=== PATIENT | male | born 1940 | race Caucasian/White ===

== ENCOUNTER 2016-10-13 05:58 | Emergency (ER) | payer MEDICARE, BC ==
--- NOTE | 2016-10-13 06:49 | ED.PDOC ---
History of Present Illness - General Chief Complaint: Respiratory Problem Stated Complaint: sore throat, diff swallowing Time Seen by Provider: 10/13/16 06:46 Source: patient, family Exam Limitations: no limitations Additional Information: SORE THROAT, STARTED 3 D AGO. FOR PAST 2 D, HAVING COUGH WITH CLEAR SPUTUM. WAS DRY COUGH AT FIRST; NOW PRODUCTIVE. DENIES FEVER. DENIES SOB. NO EAR PAIN. NO SINUS/FACIAL PAIN. STATES HAD FLU AND PNE VACCINES. IS A RETIRED LOCAL PHYSICIAN. ALLG: TO SULFA, CIPRO, CEFIXIME. - History of Present Illness Cough Quality/Degree: productive cough Improving Factors: nothing Worsening Factors: other - SWALLOWING Associated Symptoms: cough, sore throat Allergies/Adverse Reactions: Allergies Cefixime [From Suprax] Allergy (Verified 07/08/15 13:30) Ciprofloxacin [From Cipro] Allergy (Verified 03/06/15 14:31) Sodium Benzoate [From Suprax] Allergy (Verified 07/08/15 13:30) Sulfa Antibiotics Allergy (Verified 03/06/15 14:31) Anaphylaxis Home Medications: Ambulatory Orders Apixaban [Eliquis] 2.5 mg PO BID 07/08/15 LORazepam [Ativan] 2 mg PO PRN PRN 07/08/15 Lisinopril 40 mg PO DAILY 07/08/15 Propranolol HCl [Inderal LA] 120 mg PO DAILY 07/08/15 Sertraline HCl [Zoloft] 50 mg PO 10/13/16 Review of Systems - Review of Systems Constitutional: Denies: chills, diaphoresis, fever EENTM: States: throat pain. Denies: ear pain, nose congestion, throat swelling , mouth pain Respiratory: States: cough. Denies: short of breath, stridor, wheezing Cardiology: States: no symptoms reported. Denies: chest pain Genitourinary: States: no symptoms reported Musculoskeletal: States: no symptoms reported Skin: States: no symptoms reported Neurological: States: no symptoms reported Endocrine: States: no symptoms reported Hematologic/Lymphatic: States: no symptoms reported All other Systems: Reviewed and Negative Past Medical History (General) - Patient Medical History Hx Seizures: No Hx Stroke: Yes Hx Asthma: No Hx of COPD: No Hx Cardiac Disorders: Yes Hx Congestive Heart Failure: No Hx Pacemaker: No Hx Hypertension: Yes Hx Diabetes: No Hx MRSA: No Surgical History: tonsillectomy - Vaccination History Hx Tetanus, Diphtheria Vaccination: Yes Hx Influenza Vaccination: Yes Hx Pneumococcal Vaccination: Yes - Social History Hx Tobacco Use: No Hx Chewing Tobacco Use: No Hx Alcohol Use: No Hx Substance Use: No Hx Depression: Yes Hx Physical Abuse: No Hx Emotional Abuse: No - Female History Patient : No Family Medical History - Family History Father Family History: Unknown Living Status: Hx Family Asthma: No Hx Family Congestive Heart Failure: No Hx Family Hypertension: No Hx Family Stroke: No Hx Cardiac Disease: No Hx Family Diabetes: No Hx Family Cancer: Yes Mother Name: mother Living Status: Age at (years of age): 91 Cause of : sepsis Hx Family Asthma: No Hx Family Congestive Heart Failure: No Hx Family Hypertension: Yes Hx Family Stroke: No Hx Cardiac Disease: No Hx Family Diabetes: No Hx Family Cancer: No Physical Exam - Physical Exam General Appearance: Alert, Ill Appearing, Well Developed Eye Exam: bilateral normal ENT Exam: TMs normal, pharyngeal erythema, other - NO EXUDATES. Neck: non-tender, full range of motion, supple - NO LAD Respiratory: chest non-tender, no respiratory distress, no accessory muscle use - FAINT RONCHI R ANTERIOR CHEST. NO CRACKLES OR WHEEZES. 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 10/13/16 07:08 I DISCUSSED THE PATIENT'S CASE AND TRANSFERRED CARE TO DR. CROWELL, WHO IS TAKING OVER THE E.D. THIS MORNING AND WILL FORMULATE THE DIAGNOSIS AND TREATMENT PLAN. THANK YOU, DR. CROWELL. 10/13/16 07:10 10/13/16 07:11 Departure - Departure Disposition: Discharge to Home or Self Care Departure Forms: ED Discharge - Pt. Copy, Patient Portal Self Enrollment Home Medications: Ambulatory Orders Apixaban [Eliquis] 2.5 mg PO BID 07/08/15 LORazepam [Ativan] 2 mg PO PRN PRN 07/08/15 Lisinopril 40 mg PO DAILY 07/08/15 Propranolol HCl [Inderal LA] 120 mg PO DAILY 07/08/15 Sertraline HCl [Zoloft] 50 mg PO 10/13/16
[2016-10-13] MEDS ORDERED: IPRATROPIUM/ALBUTEROL 3 ML VIAL NEB ONE (07:45)
[2016-10-13 08:18] VITALS: BP 152/72; TEMP 100.4; O2SAT 92
[2016-10-13] MEDS: ACETAMINOPHEN 500 MG TAB PO ONE (08:34)
--- NOTE | 2016-10-16 14:09 | RAD ---
EXAM: Two view chest. INDICATION: Chest pain. COMPARISON: Chest x-ray: 03/06/2015. FINDINGS: Cardiac silhouette: Unremarkable. Nicole: Unremarkable. Lobar consolidation: None.Pleural effusion: None.Pneumothorax: None.Other: None. Bones: Unremarkable. Other: None. IMPRESSION: 1. No acute cardiopulmonary process. Electronically signed by: Rodney Mcfadden MD 10/13/2016 6:52 AM [employer]
--- NOTE | 2016-11-09 23:49 | RAD ---
EXAM: Two view chest. INDICATION: Chest pain. COMPARISON: Chest x-ray: 03/06/2015. FINDINGS: Cardiac silhouette: Unremarkable. Nicole: Unremarkable. Lobar consolidation: None.Pleural effusion: None.Pneumothorax: None.Other: None. Bones: Unremarkable. Other: None. IMPRESSION: 1. No acute cardiopulmonary process. Electronically signed by: Rodney Mcfadden MD 10/13/2016 6:52 AM MEDICAL SALES CONSULTANT
== END 2016-10-13 08:45 | disposition home or self-care (01) ==
LOC: ER 05:58
DX: J20.9 Acute bronchitis, unspecified (principal); I10 Essential (primary) hypertension; Z88.2 Allergy status to sulfonamides; Z88.3 Allergy status to other anti-infective agents; Z86.73 Personal history of transient ischemic attack (TIA), and cerebral infarction without residual deficits
CPT/HCPCS: 71020; 80053; 83605; 85025; 87070; 87502; 87651; J7620

== ENCOUNTER → 2017-01-09 | Outpatient (CLI) | payer MEDICARE, BC | END | disposition home or self-care (01) | LOC: GMAB 10:13 | PROVIDERS: ATTEND Family Medicine | DX: Z12.5 Encounter for screening for malignant neoplasm of prostate (principal); D51.9 Vitamin B12 deficiency anemia, unspecified; I10 Essential (primary) hypertension | CPT/HCPCS: 82607; 84443; G0103 ==

== ENCOUNTER → 2017-04-13 | Outpatient (CLI) | payer MEDICARE, BC | END | disposition home or self-care (01) | LOC: LAB 07:56 | PROVIDERS: ATTEND Internal Medicine Interventional Cardiology | DX: E78.5 Hyperlipidemia, unspecified (principal) ==

== ENCOUNTER → 2018-02-24 | Outpatient (CLI) | payer MEDICARE, BC | LOC: GMAB 11:03 | PROVIDERS: ATTEND Family Medicine | DX: E53.8 Deficiency of other specified B group vitamins (principal); I10 Essential (primary) hypertension; E55.9 Vitamin D deficiency, unspecified; Z12.5 Encounter for screening for malignant neoplasm of prostate | CPT/HCPCS: 82306; 82607; 84443; G0103 ==

== ENCOUNTER 2018-11-09 09:27 | Emergency (ER) | payer MEDICARE, BC ==
[2018-11-09 09:52] VITALS: TEMP 97.2
--- NOTE | 2018-11-09 10:05 | ED.PDOC ---
History of Present Illness - General Chief Complaint: Trauma Stated Complaint: s/p fall Time Seen by Provider: 11/09/18 09:46 Source: patient Exam Limitations: no limitations - History of Present Illness Initial Comments: Abbi Garcia 77 y/o male stated that he was in his barn 07 Nov 2018 feeding feral cats and as he was walking slipped and fell initially hit the metal door with his left shoulder and chest then landed on his left side on the concrete floor.Denies LOC.neck or abdominal pains but with non radiating dull pains on his left shoulder.chest wall and left hip on walking. Occurred: other - see hpi Severity: moderate Pain Location: chest, pelvis, upper extremity Method of Injury: fall Improving Factors: rest Worsening Factors: movement Loss of Consciousness: no loss of consciousness Associated Symptoms (Fall): other - pain Allergies/Adverse Reactions: Allergies Cefixime [From Suprax] Allergy (Verified 07/08/15 13:30) Ciprofloxacin [From Cipro] Allergy (Verified 03/06/15 14:31) Olmesartan [From Benicar] Allergy (Verified 11/09/18 09:53) Sodium Benzoate [From Suprax] Allergy (Verified 07/08/15 13:30) Sulfa Antibiotics Allergy (Verified 03/06/15 14:31) Anaphylaxis Home Medications: Ambulatory Orders Apixaban [Eliquis] 2.5 mg PO BID 07/08/15 LORazepam [Ativan] 1 mg PO Q8H 07/08/15 Propranolol HCl [Inderal LA] 120 mg PO DAILY 07/08/15 Amlodipine Besylate 5 mg PO DAILY 11/09/18 Finasteride [Proscar] 5 mg PO DAILY 11/09/18 Multiple Vitamin [Multivitamins] 1 cap PO DAILY 11/09/18 Oxcarbazepine [Trileptal] 150 mg PO BEDTIME 11/09/18 Zinc 400 mg PO DAILY 11/09/18 Review of Systems - Review of Systems Constitutional: States: no symptoms reported EENTM: States: no symptoms reported Respiratory: States: no symptoms reported Cardiology: States: no symptoms reported Musculoskeletal: States: see HPI Past Medical History (General) - Patient Medical History Hx Seizures: No Hx Stroke: Yes Hx Asthma: No Hx of COPD: No Hx Cardiac Disorders: Yes Hx Congestive Heart Failure: No Hx Pacemaker: No Hx Hypertension: Yes Hx Diabetes: No Hx MRSA: No Surgical History: tonsillectomy, other - femur right,cataract bilateral - Vaccination History Hx Tetanus, Diphtheria Vaccination: Yes Hx Influenza Vaccination: Yes Hx Pneumococcal Vaccination: Yes - Social History Hx Tobacco Use: No Hx Chewing Tobacco Use: No Hx Alcohol Use: No Hx Substance Use: No Hx Depression: Yes Hx Physical Abuse: No Hx Emotional Abuse: No - Activities of Daily Living Patient Lives Alone: No - Female History Patient : No Family Medical History - Family History Father Family History: Unknown Living Status: Hx Family Asthma: No Hx Family Congestive Heart Failure: No Hx Family Hypertension: No Hx Family Stroke: No Hx Cardiac Disease: No Hx Family Diabetes: No Hx Family Cancer: Yes Mother Name: mother Living Status: Age at (years of age): 91 Cause of : sepsis Hx Family Asthma: No Hx Family Congestive Heart Failure: No Hx Family Hypertension: Yes Hx Family Stroke: No Hx Cardiac Disease: No Hx Family Diabetes: No Hx Family Cancer: No Physical Exam - Physical Exam General Appearance: Alert, Comfortable, No apparent distress Head Injury: no evidence of injury Eye Exam: bilateral normal ENT Exam: hearing grossly normal, no evidence of ENT injury, no dental injury Neck Exam: non-tender, full range of motion, normal alignment, normal inspection Cardiovascular/Respiratory: regular rate, rhythm, no M/R/G, normal peripheral pulses, no JVD, normal breath sounds Gastrointestinal/Abdominal: non tender, soft Back Exam: no CVA tenderness, no vertebral tenderness Extremity Exam: no pedal edema, pelvis stable - but with ternderness left hip trochanter;int/ext rotation both hip non tender Neurologic: no motor/sensory deficits, alert, oriented x 3 - [place] Coma Score Best Eye Response (Farzana): (4) open spontaneously Best Verbal Response (Farzana): (5) oriented Best Motor Response (Farzana): (6) obeys commands Farzana Total: 15 Progress - Progress Progress: 11/09/18 11:56 Vital Signs - 8 hr 11/09/18 11/09/18 09:47 10:47 Temperature 97.2 F L Pulse Rate [ 73 95 H Right Brachial] Respiratory 16 20 Rate Blood Pressure 151/72 138/80 [Right Arm] O2 Sat by Pulse 95 95 Oximetry - EKG/XRAY/CT XRAY: hip - pelvis ,left shoulder,chest -no fractures Departure - Departure Clinical Impression: Hip pain, left, Rib pain on left side Fall Qualifiers: Encounter type: initial encounter Qualified Code(s): W19.XXXA - Unspecified fall, initial encounter Shoulder pain, left Qualifiers: Chronicity: unspecified Qualified Code(s): M25.512 - Pain in left shoulder Time of Disposition: 11:58 Disposition: Discharge to Home or Self Care Condition: Fair Departure Forms: ED Discharge - Pt. Copy, Patient Portal Self Enrollment Instructions: Bruised Rib (DC), Hip Pointer (DC), Contusion (DC) Referrals: Ray Marrero MD [Primary Care Provider] - 1-2 Weeks Home Medications: Ambulatory Orders Apixaban [Eliquis] 2.5 mg PO BID 07/08/15 LORazepam [Ativan] 1 mg PO Q8H 07/08/15 Propranolol HCl [Inderal LA] 120 mg PO DAILY 07/08/15 Amlodipine Besylate 5 mg PO DAILY 11/09/18 Finasteride [Proscar] 5 mg PO DAILY 11/09/18 Multiple Vitamin [Multivitamins] 1 cap PO DAILY 11/09/18 Oxcarbazepine [Trileptal] 150 mg PO BEDTIME 11/09/18 Zinc 400 mg PO DAILY 11/09/18 Additional Instructions: Continue with all home meds;Tylenol 500 mg every 6 hours for pain as neededReturn to ER if symptoms worsens
--- NOTE | 2018-11-09 10:48 | RAD ---
EXAM DESCRIPTION: Chest,1 View CLINICAL HISTORY: fall/pain COMPARISON: October 13, 2016 FINDINGS: The cardiomediastinal silhouette is unremarkable. There is no airspace consolidation or pleural effusion. The bronchovascular markings are within normal limits, and the lungs are not hyperinflated. There is no pneumothorax or acute fracture. IMPRESSION: Negative exam. Electronically signed by: Sandoval Asif MD 11/09/2018 10:44 AM [facility]
--- NOTE | 2018-11-09 11:40 | RAD ---
EXAM DESCRIPTION: Pelvis CLINICAL HISTORY: 77 years Male, fall/pain COMPARISON: None. FINDINGS: Single AP view of the pelvis shows no acute fracture or malalignment. Mild degenerative changes in both hips, portions of the left hip are excluded from this exam. Vascular calcifications are noted. There are degenerative changes in the lower lumbar spine. The sacroiliac joints and pubic symphysis are unremarkable. Soft tissue tissue calcifications are noted over the right flank region, doubtful clinical significance. IMPRESSION: Vascular calcifications and degenerative changes without acute pelvic abnormality, only slightly limited as detailed above. If clinical suspicion of pelvic injury persists, CT is recommended. Electronically signed by: Sandoval Asif MD 11/09/2018 11:37 AM [facility]
--- NOTE | 2018-11-09 11:42 | RAD ---
EXAM DESCRIPTION: Hip,Left 2 Views CLINICAL HISTORY: 77 years Male, fall/pain COMPARISON: None. FINDINGS: Two views of the left hip show no acute fracture or malalignment. Degenerative calcifications arise from the posterior aspect of the left acetabulum without significant left hip joint space narrowing. There are degenerative calcifications adjacent to the greater trochanter with additional soft tissue calcifications inferior to the left inferior pubic ramus. IMPRESSION: Degenerative changes without acute left hip abnormality. Electronically signed by: Sandoval Asif MD 11/09/2018 11:39 AM [facility]
--- NOTE | 2018-11-09 11:44 | RAD ---
EXAM DESCRIPTION: Ribs,Left 2 Views CLINICAL HISTORY: fall/pain COMPARISON: None available FINDINGS: Two views of the left sided ribs show no acute fracture or malalignment. No pneumothorax or left chest wall abnormality. IMPRESSION: Negative exam. Electronically signed by: Sandoval Asif MD 11/09/2018 11:41 AM [employer]
--- NOTE | 2018-11-09 11:45 | RAD ---
EXAM DESCRIPTION: Shoulder,Left 2 or More Views CLINICAL HISTORY: 77 years Male, fall/pain COMPARISON: None. FINDINGS: Two views of the left shoulder show no acute fracture or malalignment. Degenerative changes in the left AC and glenohumeral joints with superior migration of the left humeral head relative to the glenoid resulting in narrowing of the subacromial space. Soft tissue swelling superior to the left AC joint. Degenerative changes in the cervical spine with soft tissue calcifications in both sides of the neck likely vascular. IMPRESSION: Degenerative changes in the left AC and glenohumeral joints with possible chronic left rotator cuff tear. No acute fracture or malalignment. Soft tissue edema superior to the left clavicle suggestive of contusion. Degenerative changes in the cervical spine with vascular calcifications in both sides of the neck. Carotid artery ultrasound should be considered for further evaluation. Electronically signed by: Sandoval Asif MD 11/09/2018 11:42 AM [facility]
[2018-11-09 12:31] VITALS: BP 145/75; O2SAT 92
== END 2018-11-09 12:24 | disposition home or self-care (01) ==
LOC: ER 09:27
DX: M25.512 Pain in left shoulder (principal); M25.552 Pain in left hip; R07.81 Pleurodynia; I51.9 Heart disease, unspecified; I10 Essential (primary) hypertension; F32.9 Major depressive disorder, single episode, unspecified; W01.198A Fall on same level from slipping, tripping and stumbling with subsequent striking against other object, initial encounter; Y92.71 Barn as the place of occurrence of the external cause; Z86.73 Personal history of transient ischemic attack (TIA), and cerebral infarction without residual deficits; Z79.899 Other long term (current) drug therapy; Z88.8 Allergy status to other drugs, medicaments and biological substances; Z88.2 Allergy status to sulfonamides

== ENCOUNTER → 2019-04-11 | Outpatient (CLI) | payer MEDICARE, BC | LOC: GMAM 10:22 | PROVIDERS: ATTEND Family Medicine | DX: E53.8 Deficiency of other specified B group vitamins (principal); I10 Essential (primary) hypertension; E55.9 Vitamin D deficiency, unspecified; Z12.5 Encounter for screening for malignant neoplasm of prostate | CPT/HCPCS: 82306; 82607; G0103 ==

== ENCOUNTER → 2019-09-29 | Outpatient (CLI) | payer MEDICARE, BC ==
--- NOTE | 2019-09-29 17:08 | MRI ---
EXAM DESCRIPTION: Brain w/oContrast CLINICAL HISTORY: CEREBRAL INFARCTION COMPARISON: None available TECHNIQUE: Non contrast MRI of the brain is performed according to our usual protocol including multiplanar multi sequence technique. FINDINGS: Sagittal T1 images show intact corpus callosum. Normal pituitary gland with normal T1 appearance of the purnima and medulla and upper cervical cord. Normal signal intensity within the clivus and calvarium. Axial T2 fat sat images reveal preservation of intracranial vascular flow voids. Normal briones matter T2 signal intensity. Extensive white matter hyperintensities. Prominent perivascular spaces. Prominent ventricles and sulci consistent with age-related cerebral volume loss. The globes appear intact and symmetrical. Fluid is seen in the right mastoid air cells and right tympanic cavity. Correlate with ENT exam. This may have been present on the previous study but is better seen on today's exam. No abnormal fluid signal in the paranasal sinuses, tympanic cavities or left mastoid air cells. Axial flair images show multiple foci of increased signal intensity in the cerebral white matter consistent with chronic microvascular ischemic disease. 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 Compared to the previous FLAIR images from March 06, 2015, left parietal lobe abnormalities are a new development. However they are still chronic in appearance. Diffusion weighted images are negative for focal intense increased signal intensity in the brain parenchyma to suggest restricted diffusion. ADC mapping is negative. Axial T1 images show normal briones-white matter differentiation. No high signal intensity hemorrhagic lesion of the brain parenchyma. No subdural hematoma. Axial susceptibility weighted images are negative for focal signal loss to suggest abnormal brain parenchymal calcification or hemosiderin deposition. IMPRESSION: Senescent volume loss with extensive chronic microvascular ischemic disease of the cerebral white matter. No acute intracranial pathologic process. Right otomastoid effusion. See above. Electronically signed by: Abdoulaye López MD 09/29/2019 5:06 PM [facility]
== END ==
LOC: MRI 14:00
PROVIDERS: ATTEND Psychiatry & Neurology Neurology
DX: I63.312 Cerebral infarction due to thrombosis of left middle cerebral artery (principal); I67.82 Cerebral ischemia; H74.8X1 Other specified disorders of right middle ear and mastoid

== ENCOUNTER 2020-08-08 21:36 | Observation (INO) | payer MEDICARE, BC ==
[2020-08-08] MEDS ORDERED: ACETAMINOPHEN 500 MG TAB PO ONE (21:57)
[2020-08-08] MEDS ORDERED: SODIUM CHLORIDE 0.9% 1000ML 1,000 ML IVS ONE (21:57)
[2020-08-08] MEDS ORDERED: TETANUS,DIPHTHERIA,PERTUSSIS 1 EA SYG IM ONE (22:03)
--- NOTE | 2020-08-08 22:04 | ED.PDOC ---
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 History through Daughter. Denies fever cough sob recent travel or contact with covid19 denies fever chills there was nausea and abdominal pain reported denies vomiting diarrhea chest pain sob diaphoresis. No change in diet rest bowel or bladder denies drinking or smoking admits FH DM unsure of FH HTN no other c/o today. PPE worn-N95 surgical mask with attached face shield over N95 gloves and face shield over that Allergies/Adverse Reactions: Allergies Cefixime [From Suprax] Allergy (Verified 07/08/15 13:30) Ciprofloxacin [From Cipro] Allergy (Verified 03/06/15 14:31) Olmesartan [From Benicar] Allergy (Verified 11/09/18 09:53) Sodium Benzoate [From Suprax] Allergy (Verified 07/08/15 13:30) Sulfa Antibiotics Allergy (Verified 03/06/15 14:31) Anaphylaxis Home Medications: Ambulatory Orders Apixaban [Eliquis] 2.5 mg PO BID 07/08/15 LORazepam [Ativan] 1 mg PO Q8H 07/08/15 Propranolol HCl [Inderal LA] 120 mg PO DAILY 07/08/15 Amlodipine Besylate 5 mg PO DAILY 11/09/18 Finasteride [Proscar] 5 mg PO DAILY 11/09/18 Multiple Vitamin [Multivitamins] 1 cap PO DAILY 11/09/18 Oxcarbazepine [Trileptal] 150 mg PO BEDTIME 11/09/18 Zinc 400 mg PO DAILY 11/09/18 Review of Systems - Review of Systems Constitutional: States: see HPI EENTM: States: see HPI Respiratory: States: see HPI Cardiology: States: see HPI Gastrointestinal/Abdominal: States: see HPI Genitourinary: States: see HPI Musculoskeletal: States: see HPI Skin: States: see HPI Neurological: States: see HPI Endocrine: States: see HPI All other Systems: Reviewed and Negative Past Medical History (General) - Patient Medical History Hx Seizures: No Hx Stroke: Yes Hx Asthma: No Hx of COPD: No Hx Cardiac Disorders: Yes Hx Congestive Heart Failure: No Hx Pacemaker: No Hx Hypertension: Yes Hx Diabetes: No Hx MRSA: No - Vaccination History Hx Tetanus, Diphtheria Vaccination: Yes Hx Influenza Vaccination: Yes Hx Pneumococcal Vaccination: Yes - Social History Hx Tobacco Use: No Hx Chewing Tobacco Use: No Hx Alcohol Use: No Hx Substance Use: No Hx Depression: Yes Hx Physical Abuse: No Hx Emotional Abuse: No - Female History Patient : No Family Medical History - Family History Father Family History: Unknown Living Status: Hx Family Asthma: No Hx Family Congestive Heart Failure: No Hx Family Hypertension: No Hx Family Stroke: No Hx Cardiac Disease: No Hx Family Diabetes: No Hx Family Cancer: Yes Mother Name: mother Living Status: Age at (years of age): 91 Cause of : sepsis Hx Family Asthma: No Hx Family Congestive Heart Failure: No Hx Family Hypertension: Yes Hx Family Stroke: No Hx Cardiac Disease: No Hx Family Diabetes: No Hx Family Cancer: No Physical Exam - Physical Exam General Appearance: No apparent distress Eye Exam: bilateral normal Ears, Nose, Throat: normal ENT inspection Neck: non-tender Respiratory: no respiratory distress Cardiovascular/Chest: regular rate, rhythm Gastrointestinal/Abdominal: non tender, soft Rectal Exam: deferred Back Exam: normal inspection, other - superficial diagonal left scapula abrasion Extremity: non-tender, other - wrapped left forearm skin tear Neurologic: other - oriented only to self and confused Skin Exam: normal color, other - superficial abrasions and skin tears Progress - Progress Progress: 08/08/20 22:09 A/P-Fall Closed Head Injury Contusions Abrasions Altered Mental Status-iv tylenol 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 cmp trop c collar ct c spine ct head cta chest ct abdomen pelvis xr left forearm reassess 08/08/20 22:51 EKG-non specific TW changes No STEMI motion artifact NSR 62bpm Laboratory Tests 08/08/20 08/08/20 08/08/20 22:12 22:12 22:12 WBC 9.6 RBC 4.91 Hgb 16.6 Hct 44.1 MCV 89.7 MCH 33.7 H MCHC 37.6 H RDW 14.2 Plt Count 232 MPV 7.1 L Absolute Neuts (auto) 7.00 H Absolute Lymphs (auto) 1.50 Absolute Monos (auto) 0.90 H Absolute Eos (auto) 0.10 Absolute Basos (auto) 0.00 Neutrophils % 73.3 Lymphocytes % 16.0 L Monocytes % 9.0 Eosinophils % 1.2 Basophils % 0.5 PT 11.0 H INR 1.11 PTT (SP) 28.0 Sodium 123 L Potassium 4.3 Chloride 84 L Carbon Dioxide 26 Anion Gap 17.3 BUN 17 Creatinine 0.97 BUN/Creatinine Ratio 17.5 Random Glucose 113 H Serum Osmolality 250.1 L* Lactic Acid Calcium 9.6 Total Bilirubin 3.3 H* AST 33 ALT 17 Alkaline Phosphatase 88 Troponin I B-Natriuretic Peptide Serum Total Protein 7.9 Albumin 5.1 Globulin 2.8 Albumin/Globulin Ratio 1.8 Lipase 39 08/08/20 08/08/20 08/08/20 22:12 22:12 22:12 WBC RBC Hgb Hct MCV MCH MCHC RDW Plt Count MPV Absolute Neuts (auto) Absolute Lymphs (auto) Absolute Monos (auto) Absolute Eos (auto) Absolute Basos (auto) Neutrophils % Lymphocytes % Monocytes % Eosinophils % Basophils % PT INR PTT (SP) Sodium Potassium Chloride Carbon Dioxide Anion Gap BUN Creatinine BUN/Creatinine Ratio Random Glucose Serum Osmolality Lactic Acid 1.1 Calcium Total Bilirubin AST ALT Alkaline Phosphatase Troponin I 0.02 B-Natriuretic Peptide 274.0 H* Serum Total Protein Albumin Globulin Albumin/Globulin Ratio Lipase Dx-Hyponatremia 08/08/20 23:35 COVID Negative EXAM: CT Head Without Intravenous Contrast CLINICAL HISTORY: The patient is 79 years old and is Male; fall on eloquis TECHNIQUE: Axial computed tomography images of the head/brain without intravenous contrast. Sagittal and coronal reformatted images were created and reviewed. This CT exam was performed using one or more of the following dose reduction techniques: automated exposure control, adjustment of the mA and/or kV according to patient size, and/or use of iterative reconstruction technique. COMPARISON: CT of the head October 23, 2011 FINDINGS: BRAIN: No intracranial hemorrhage, mass effect, or midline shift is seen. There are no extra-axial fluid collections. There is diffuse cerebral atrophy present, consistent with this patient's age. There is patchy hypoattenuation of the deep white matter which is non-specific, but most likely owing to chronic small vessel ischemic change in a patient of this age group. V ENTRICLES: Unremarkable. No ventriculomegaly. BONES/JOINTS: No acute fracture. SOFT TISSUES: Unremarkable. SINUSES: Unremarkable as visualized. No acute sinusitis. MASTOID AIR CELLS: Evidence of prior partial right mastoidectomy is noted. Minimal fluid is noted within the inferior right mastoid air cells. ORBITS: Senescent calcification of the globes is noted. IMPRESSION: No acute intracranial findings. Electronically signed by: Val Curiel MD 08/08/2020 11:24 PM DRIVER'S LICENSE REVIEWING OFFICER EXAM: CT Cervical Spine Without Intravenous Contrast CLINICAL HISTORY: The patient is 79 years old and is Male; fall on eloquis TECHNIQUE: Axial computed tomography images of the cervical spine without intravenous contrast. Sagittal and coronal reformatted images were created and reviewed. This CT exam was performed using one or more of the following dose reduction techniques: automated exposure control, adjustment of the mA and/or kV according to patient size, and/or use of iterative reconstruction technique. COMPARISON: No relevant prior studies available. FINDINGS: VERTEBRAE: The vertebral body heights and alignment are maintained. No acute fracture. DISCS/SPINAL CANAL/NEURAL FORAMINA: Multilevel degenerative change of the spine is present. Osteophyte formation with facet arthropathy is present throughout. There is no significant canal stenosis. SOFT TISSUES: The soft tissues are normal. LUNG APICES: The lung apices are clear. IMPRESSION: Spondylosis of the cervical spine without acute findings. Electronically signed by: Val Curiel MD 08/08/2020 11:22 PM DRIVER'S LICENSE REVIEWING OFFICER EXAM: XR Left Forearm, 2 Views CLINICAL HISTORY: The patient is 79 years old and is Male; fall pain TECHNIQUE: Frontal and lateral views of the left forearm. COMPARISON: No relevant prior studies available. FINDINGS: BONES/JOINTS: Bones are diffusely osteopenic. No acute fracture. No dislocation. SOFT TISSUES: Unremarkable. IMPRESSION: No acute findings in the left forearm. Electronically signed by: Val Curiel MD 08/08/2020 11:19 PM DRIVER'S LICENSE REVIEWING OFFICER EXAM: XR Chest, 1 View CLINICAL HISTORY: The patient is 79 years old and is Male; syncope TECHNIQUE: Frontal view of the chest. COMPARISON: Chest radiograph November 09, 2018 FINDINGS: LUNGS: Unremarkable. No consolidation. PLEURAL SPACE: Unremarkable. No pneumothorax. HEART: Unremarkable. No cardiomegaly. MEDIASTINUM: Unremarkable. BONES/JOINTS: Unremarkable. IMPRESSION: No acute cardiopulmonary process. Electronically signed by: Val Curiel MD 08/08/2020 11:20 PM DRIVER'S LICENSE REVIEWING OFFICER 08/08/20 23:57 EXAM DESCRIPTION: CTA Chest (accession [id number]), Abdomen/Pelvis w/Contrast (accession [id number]) CLINICAL HISTORY: 79 years Male r/o PE COMPARISON: Chest x-ray 08/08/2020. TECHNIQUE: CT of the chest, abdomen, and pelvis using intravenous contrast. All CT scans at this facility use dose modulation, iterative reconstruction, and/or weight based dosing when appropriate to reduce radiation dose to as low as reasonably achievable. FINDINGS: Chest: Pulmonary arteries: Adequate contrast opacification. Evaluation of pulmonary arteries however is degraded due to beam hardening and motion. No large central pulmonary emboli within the main pulmonary arteries. Lungs: Bilateral dependent scarring/atelectasis. Otherwise lungs clear. No suspicious pulmonary masses. No pneumothorax or pleural effusion. Central airways patent. Mediastinum:No mediastinal mass or adenopathy. Thoracic aortic atherosclerosis. Heart is normal in size. Bones:No acute bone findings. Abdomen: Stomach:Within normal limits Liver:No focal lesions. No intrahepatic ductal distention. Gallbladder: Moderately distended. Ovoid dense lesion within the gallbladder, likely gallstone, measuring 9 mm. No pericholecystic fluid. No gallbladder wall thickening. Pancreas: Parenchymal atrophic changes. Spleen:Within normal limits Right kidney: No hydronephrosis. Multiple hypodensities, likely cysts. Indeterminate ovoid lesion in the right renal midpole measuring 14 mm (series 605/67) . Mild cortical thinning. Left kidney: No hydronephrosis. Multiple hypodensities, likely cysts. Cortical thinning. Adrenal glands:Within normal limits Vascular structures: Extensive vascular calcifications. Nodes:No lymphadenopathy by size criteria Pelvis: Small bowel:No significant distention. Appendix:Within normal limits Colon: No focal bowel wall thickening. Sigmoid colonic diverticulosis without diverticulitis. Moderate to large colonic stool burden, most prominent in the rectal vault. No free intraperitoneal fluid or air. Bones: No acute bone findings. Grade 1 anterolisthesis of L4 on L5. Bladder: Unremarkable. Enlarged heterogeneous prostate. Soft tissues: Small fat-containing umbilical hernia. Small fat- containing right greater than left inguinal hernias. IMPRESSION: 1. Evaluation of pulmonary arteries is limited due to beam hardening artifact from patient positioning and motion. No large central pulmonary emboli within the main pulmonary arteries. 2. No acute thoracic findings. 3. Cholelithiasis without associated pericholecystic fluid or gallbladder wall thickening. If concern for acute cholecystitis exists, recommend dedicated ultrasound. 4. Moderate to large colonic stool burden. Prominent stool burden in the rectal vault, raising concern for impending fecal impaction. 5. Sigmoid colonic diverticulosis without diverticulitis. 6. Multiple hypodensities in the bilateral kidneys, likely cysts. Indeterminate ovoid lesion in the right renal midpole measuring 14 mm. Recommend dedicated nonemergent multiphasic renal MR for better evaluation. 7. Prostatomegaly. Correlate with PSA. Electronically signed by: Den Johnson MD 08/08/2020 11:49 PM DRIVER'S LICENSE REVIEWING OFFICER Laboratory Tests 08/08/20 08/08/20 08/08/20 22:12 22:12 22:12 WBC 9.6 RBC 4.91 Hgb 16.6 Hct 44.1 MCV 89.7 MCH 33.7 H MCHC 37.6 H RDW 14.2 Plt Count 232 MPV 7.1 L Absolute Neuts (auto) 7.00 H Absolute Lymphs (auto) 1.50 Absolute Monos (auto) 0.90 H Absolute Eos (auto) 0.10 Absolute Basos (auto) 0.00 Neutrophils % 73.3 Lymphocytes % 16.0 L Monocytes % 9.0 Eosinophils % 1.2 Basophils % 0.5 PT 11.0 H INR 1.11 PTT (SP) 28.0 Sodium 123 L Potassium 4.3 Chloride 84 L Carbon Dioxide 26 Anion Gap 17.3 BUN 17 Creatinine 0.97 BUN/Creatinine Ratio 17.5 Random Glucose 113 H Serum Osmolality 250.1 L* Lactic Acid Calcium 9.6 Total Bilirubin 3.3 H* AST 33 ALT 17 Alkaline Phosphatase 88 Troponin I B-Natriuretic Peptide Serum Total Protein 7.9 Albumin 5.1 Globulin 2.8 Albumin/Globulin Ratio 1.8 Lipase 39 08/08/20 08/08/20 08/08/20 22:12 22:12 22:12 WBC RBC Hgb Hct MCV MCH MCHC RDW Plt Count MPV Absolute Neuts (auto) Absolute Lymphs (auto) Absolute Monos (auto) Absolute Eos (auto) Absolute Basos (auto) Neutrophils % Lymphocytes % Monocytes % Eosinophils % Basophils % PT INR PTT (SP) Sodium Potassium Chloride Carbon Dioxide Anion Gap BUN Creatinine BUN/Creatinine Ratio Random Glucose Serum Osmolality Lactic Acid 1.1 Calcium Total Bilirubin AST ALT Alkaline Phosphatase Troponin I 0.02 B-Natriuretic Peptide 274.0 H* Serum Total Protein Albumin Globulin Albumin/Globulin Ratio Lipase 08/09/20 00:15 Pt and family wish to go home have a good support system and are willing to follow up as outpatients. 08/09/20 05:35 Pt and family convinced of unsafe discharge called hospitalist who accepts admission after repeat head CT in [address] HEAD WITHOUT CONTRAST CLINICAL HISTORY: Fall. COMPARISON: CT head without contrast 08/08/2020. TECHNIQUE: Axial unenhanced CT imaging of the brain. Reformatted coronal and sagittal images obtained. This examination was performed according to our departmental dose optimization program, which includes automated exposure control, adjustment of the mA and/or kV according to patient size and/or use of iterative reconstruction technique. FINDINGS: There is mild prominence of the ventricles and extra-axial fluid spaces due to cortical volume loss. There is moderate decreased white matter attenuation secondary to chronic microvascular ischemic change. There is no intraparenchymal or extra-axial bleed. No mass or midline shift. No edema or evidence of acute large territorial infarction. No hyperdense vessel. The cerebellum and vermis appear normal. 4th ventricle is midline. Prepontine cisterns are not effaced. Normal sella contents. Intraorbital contents are unremarkable. Clear paranasal sinuses. Mastoid air cells are clear on the left side. There is evidence of right mastoidectomy. There is opacification of the inferior right mastoid air cells. Skull base is intact. Intact calvarium. Normal scalp soft tissues. IMPRESSION: 1. No intracranial hemorrhage or skull fracture. 2. Mild to moderate senescent brain changes. 3. Status post right mastoidectomy. Inferior right mastoid effusion. Electronically signed by: Deirdre Castanon DO 08/09/2020 5:26 AM DRIVER'S LICENSE REVIEWING OFFICER ADMIT Departure - Departure Clinical Impression: Hyponatremia, Syncope and collapse, Multiple contusions, Abrasion, Abrasions of multiple sites, Dehydration Altered mental status Qualifiers: Altered mental status type: unspecified Qualified Code(s): R41.82 - Altered mental status, unspecified Fall Qualifiers: Encounter type: initial encounter Qualified Code(s): W19.XXXA - Unspecified fall, initial encounter Closed head injury Qualifiers: Encounter type: initial encounter Qualified Code(s): S09.90XA - Unspecified injury of head, initial encounter Time of Disposition: 05:39 Disposition: Admit Patient Condition: Fair Referrals: Tal Serrano MD [Primary Care Provider] - 1-2 Days Home Medications: Ambulatory Orders Apixaban [Eliquis] 2.5 mg PO BID 07/08/15 LORazepam [Ativan] 1 mg PO Q8H 07/08/15 Propranolol HCl [Inderal LA] 120 mg PO DAILY 07/08/15 Amlodipine Besylate 5 mg PO DAILY 11/09/18 Finasteride [Proscar] 5 mg PO DAILY 11/09/18 Multiple Vitamin [Multivitamins] 1 cap PO DAILY 11/09/18 Oxcarbazepine [Trileptal] 150 mg PO BEDTIME 11/09/18 Zinc 400 mg PO DAILY 11/09/18 Decision To Admit - Decistion To Admit Decision to Admit Reason: Admit from ER Decision to Admit Date: 08/09/20 Decision to Admit Time: 05:39
[2020-08-08] MEDS ORDERED: LORazepam 0.5 MG TAB PO ONE (23:15)
--- NOTE | 2020-08-08 23:20 | RAD ---
EXAM: XR Left Forearm, 2 Views CLINICAL HISTORY: The patient is 79 years old and is Male; fall pain TECHNIQUE: Frontal and lateral views of the left forearm. COMPARISON: No relevant prior studies available. FINDINGS: BONES/JOINTS: Bones are diffusely osteopenic. No acute fracture. No dislocation. SOFT TISSUES: Unremarkable. IMPRESSION: No acute findings in the left forearm. Electronically signed by: Val Curiel MD 08/08/2020 11:19 PM [facility]
--- NOTE | 2020-08-08 23:21 | RAD ---
EXAM: XR Chest, 1 View CLINICAL HISTORY: The patient is 79 years old and is Male; syncope TECHNIQUE: Frontal view of the chest. COMPARISON: Chest radiograph November 09, 2018 FINDINGS: LUNGS: Unremarkable. No consolidation. PLEURAL SPACE: Unremarkable. No pneumothorax. HEART: Unremarkable. No cardiomegaly. MEDIASTINUM: Unremarkable. BONES/JOINTS: Unremarkable. IMPRESSION: No acute cardiopulmonary process. Electronically signed by: Val Curiel MD 08/08/2020 11:20 PM DIRECTOR TRIAL
--- NOTE | 2020-08-08 23:23 | CT ---
EXAM: CT Cervical Spine Without Intravenous Contrast CLINICAL HISTORY: The patient is 79 years old and is Male; fall on eloquis TECHNIQUE: Axial computed tomography images of the cervical spine without intravenous contrast. Sagittal and coronal reformatted images were created and reviewed. This CT exam was performed using one or more of the following dose reduction techniques: automated exposure control, adjustment of the mA and/or kV according to patient size, and/or use of iterative reconstruction technique. COMPARISON: No relevant prior studies available. FINDINGS: VERTEBRAE: The vertebral body heights and alignment are maintained. No acute fracture. DISCS/SPINAL CANAL/NEURAL FORAMINA: Multilevel degenerative change of the spine is present. Osteophyte formation with facet arthropathy is present throughout. There is no significant canal stenosis. SOFT TISSUES: The soft tissues are normal. LUNG APICES: The lung apices are clear. IMPRESSION: Spondylosis of the cervical spine without acute findings. Electronically signed by: Val Curiel MD 08/08/2020 11:22 PM [facility]
--- NOTE | 2020-08-08 23:26 | CT ---
EXAM: CT Head Without Intravenous Contrast CLINICAL HISTORY: The patient is 79 years old and is Male; fall on eloquis TECHNIQUE: Axial computed tomography images of the head/brain without intravenous contrast. Sagittal and coronal reformatted images were created and reviewed. This CT exam was performed using one or more of the following dose reduction techniques: automated exposure control, adjustment of the mA and/or kV according to patient size, and/or use of iterative reconstruction technique. COMPARISON: CT of the head October 23, 2011 FINDINGS: BRAIN: No intracranial hemorrhage, mass effect, or midline shift is seen. There are no extra-axial fluid collections. There is diffuse cerebral atrophy present, consistent with this patient's age. There is patchy hypoattenuation of the deep white matter which is non-specific, but most likely owing to chronic small vessel ischemic change in a patient of this age group. VENTRICLES: Unremarkable. No ventriculomegaly. BONES/JOINTS: No acute fracture. SOFT TISSUES: Unremarkable. SINUSES: Unremarkable as visualized. No acute sinusitis. MASTOID AIR CELLS: Evidence of prior partial right mastoidectomy is noted. Minimal fluid is noted within the inferior right mastoid air cells. ORBITS: Senescent calcification of the globes is noted. IMPRESSION: No acute intracranial findings. Electronically signed by: Val Curiel MD 08/08/2020 11:24 PM DRIER OPERATOR HELPER
--- NOTE | 2020-08-08 23:51 | CT ---
EXAM DESCRIPTION: CTA Chest (accession [id number]), Abdomen/Pelvis w/Contrast (accession [id number]) CLINICAL HISTORY: 79 years Male r/o PE COMPARISON: Chest x-ray 08/08/2020. TECHNIQUE: CT of the chest, abdomen, and pelvis using intravenous contrast. All CT scans at this facility use dose modulation, iterative reconstruction, and/or weight based dosing when appropriate to reduce radiation dose to as low as reasonably achievable. FINDINGS: Chest: Pulmonary arteries: Adequate contrast opacification. Evaluation of pulmonary arteries however is degraded due to beam hardening and motion. No large central pulmonary emboli within the main pulmonary arteries. Lungs: Bilateral dependent scarring/atelectasis. Otherwise lungs clear. No suspicious pulmonary masses. No pneumothorax or pleural effusion. Central airways patent. Mediastinum:No mediastinal mass or adenopathy. Thoracic aortic atherosclerosis. Heart is normal in size. Bones:No acute bone findings. Abdomen: Stomach:Within normal limits Liver:No focal lesions. No intrahepatic ductal distention. Gallbladder: Moderately distended. Ovoid dense lesion within the gallbladder, likely gallstone, measuring 9 mm. No pericholecystic fluid. No gallbladder wall thickening. Pancreas: Parenchymal atrophic changes. Spleen:Within normal limits Right kidney: No hydronephrosis. Multiple hypodensities, likely cysts. Indeterminate ovoid lesion in the right renal midpole measuring 14 mm (series 605/67) . Mild cortical thinning. Left kidney: No hydronephrosis. Multiple hypodensities, likely cysts. Cortical thinning. Adrenal glands:Within normal limits Vascular structures: Extensive vascular calcifications. Nodes:No lymphadenopathy by size criteria Pelvis: Small bowel:No significant distention. Appendix:Within normal limits Colon: No focal bowel wall thickening. Sigmoid colonic diverticulosis without diverticulitis. Moderate to large colonic stool burden, most prominent in the rectal vault. No free intraperitoneal fluid or air. Bones: No acute bone findings. Grade 1 anterolisthesis of L4 on L5. Bladder: Unremarkable. Enlarged heterogeneous prostate. Soft tissues: Small fat-containing umbilical hernia. Small fat-containing right greater than left inguinal hernias. IMPRESSION: 1. Evaluation of pulmonary arteries is limited due to beam hardening artifact from patient positioning and motion. No large central pulmonary emboli within the main pulmonary arteries. 2. No acute thoracic findings. 3. Cholelithiasis without associated pericholecystic fluid or gallbladder wall thickening. If concern for acute cholecystitis exists, recommend dedicated ultrasound. 4. Moderate to large colonic stool burden. Prominent stool burden in the rectal vault, raising concern for impending fecal impaction. 5. Sigmoid colonic diverticulosis without diverticulitis. 6. Multiple hypodensities in the bilateral kidneys, likely cysts. Indeterminate ovoid lesion in the right renal midpole measuring 14 mm. Recommend dedicated nonemergent multiphasic renal MR for better evaluation. 7. Prostatomegaly. Correlate with PSA. Electronically signed by: Den Johnson MD 08/08/2020 11:49 PM PIG FARM MANAGER
[2020-08-09] MEDS: FAMOTIDINE 20 MG TAB PO SCH ×3 (01:01→20:11)
--- NOTE | 2020-08-09 05:28 | CT ---
CT HEAD WITHOUT CONTRAST CLINICAL HISTORY: Fall. COMPARISON: CT head without contrast 08/08/2020. TECHNIQUE: Axial unenhanced CT imaging of the brain. Reformatted coronal and sagittal images obtained. This examination was performed according to our departmental dose optimization program, which includes automated exposure control, adjustment of the mA and/or kV according to patient size and/or use of iterative reconstruction technique. FINDINGS: There is mild prominence of the ventricles and extra-axial fluid spaces due to cortical volume loss. There is moderate decreased white matter attenuation secondary to chronic microvascular ischemic change. There is no intraparenchymal or extra-axial bleed. No mass or midline shift. No edema or evidence of acute large territorial infarction. No hyperdense vessel. The cerebellum and vermis appear normal. 4th ventricle is midline. Prepontine cisterns are not effaced. Normal sella contents. Intraorbital contents are unremarkable. Clear paranasal sinuses. Mastoid air cells are clear on the left side. There is evidence of right mastoidectomy. There is opacification of the inferior right mastoid air cells. Skull base is intact. Intact calvarium. Normal scalp soft tissues. IMPRESSION: 1. No intracranial hemorrhage or skull fracture. 2. Mild to moderate senescent brain changes. 3. Status post right mastoidectomy. Inferior right mastoid effusion. Electronically signed by: Deirdre Castanon DO 08/09/2020 5:26 AM [employer]
--- NOTE | 2020-08-09 06:02 | HP ---
SUPERVISING PHYSICIAN: Janes Millan MD CHIEF COMPLAINT: Fall, closed head injury with confusion. HISTORY OF PRESENT ILLNESS: Mr. Garcia is an 79 year-old male patient with a history of previous CVAs an petit mal seizures. He was brought to the Emergency Room las night after he apparently had an episode of a fall with loss of consciousness. Patient initially presented with confusion but was noted on initial laboratory studies showed his sodium was low at 123. He also takes Ativan at night as well as Trileptal. His initial CT of the head without contrast was without any acute findings. Given his hyponatremia and confusion, he was kept in the Emergency Room for an additional 5 hours and then followup on a head CT with the fact that the patient is on Eliquis due to his previous strokes to insure he does not have an active bleed. That repeat head scan was negative for acute bleed and at this point he is going to be admitted for continuation of treatment. His mentation is back to normal baseline prior to admission and he feels like probably his sodium was low and that is contributed probably to his Trileptal. 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 He notes over the last several days he has been having some issues with constipation and had to try some glycerin suppositories as well as a Fleets enema with minimal results. He wasn't having any abdominal pain the CT of the abdomen in the Emergency Room with contrast did show a large burden of colonic stool with a prominent stool burden in the rectal vault concerning for a possible impending fecal impaction. There is also note of sigmoid colonic diverticulosis but no diverticulitis. He also has a history of cholelithiasis and on initial labs his bilirubin was elevated at 3.[address] findings showed no associated pericholecystic fluid or gallbladder wall thickening concerning for acute cholelithiasis on initial exam. He was not having any right upper quadrant pain. I did discuss the case with Dr. Torres and he is in agreement that the patient is safe to admit here with priority being his sodium and his mental status change but to be closely monitored for the elevated bilirubin. He is admitted in stable condition. PAST MEDICAL HISTORY: 1. Chronic cholelithiasis. 2. Diverticulosis. 3. Spinal stenosis of the lumbar region. 4. 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 Dale on chronic medication to include Trileptal. PAST SURGICAL HISTORY: No major surgeries listed. He did have an EGD in [address] Perez. CURRENT MEDICATIONS: 1. Propranolol 120 mg daily. 2. Trileptal 150 mg at bedtime but he takes half tablet b.i.d. 3. Multivitamins. 4. Ativan 1 mg every 8 hours. 5. Proscar 5 mg daily. 6 Eliquis 2.5 mg b.i.d. 7. Amlodipine 2.5 mg daily. ALLERGIES: Ciprofloxacin, Cefixime, Olmesartan, sodium benzoate, sulfa antibiotics. FAMILY HISTORY: Noncontributory. 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 He lives in [place], is marred. He has no history of tobacco usage or alcohol or illicit drug use. REVIEW OF SYSTEMS: CONSTITUTIONAL: Denies general malaise, generalized weakness but he does utilize a cane. No fevers, chills. HEENT: Denies headaches. vision changes, sore throat, earaches. CHEST: Denies shortness of breath, wheezing or coughing. HEART: Denies chest pain, palpitations, positive for a syncope event. See history of present illness. ABDOMEN: Denies nausea, vomiting, diarrhea, has had some issues with constipation but no abdominal pain. GENITOURINARY: Denies dysuria, hematuria or polyuria. MUSCULOSKELETAL: Denies arthralgias, joint swelling. SKIN: Denies lesions, rashes, moles or unexplained changes. NEUROLOGIC: As noted in history of present illness, loss of consciousness status post fall, unknown etiology with some mild confusion. Utilizes a cane to walk with. History of previous CVAs and petit mal seizures but is not sure of the last time he actually had a seizure and not sure if he had one last night. HEMATOLOGICAL: Denies unexplained bleeding, easy bruising or transfusion reactions. PHYSICAL EXAMINATION: VITAL SIGNS: Temperature 97.4, pulse 70, blood pressure 138/74, respirations 16, oxygen saturation 95% on room air at rest. GENERAL: The patient is resting comfortably does not appear to be in any distress at time of admission. He is alert and oriented x3 and back to his baseline mental status. HEENT: Tympanic membranes are clear bilaterally. Oropharynx is pink, moist, without any lesions. NECK: Supple, nontender, full range of motion, no jugular venous distention. CHEST: Lung sounds were clear to auscultation bilaterally without rhonchi, rales, or wheezes. CARDIOVASCULAR: Regular rate and rhythm without appreciable murmurs, rubs, or gallops. ABDOMEN: Obese, soft, nontender, positive bowel sounds. EXTREMITIES: Without cyanosis, clubbing, or edema. BACK: Without CVA or vertebral tenderness. SKIN: Warm, pink and dry. NEUROLOGIC: Cranial nerves II through XII are grossly intact. He is alert and oriented x3. Facial features were symmetrical. Extraocular movements within normal limits. There was no notable nystagmus. LABORATORY: Initial sodium 123, osmolality 250. Bilirubin was elevated at 3.3. Liver functions all within normal limits except for the bilirubin. Troponin was 0.02 x2 specimens. BNP was slightly elevated at 274. Potassium normal. Urinalysis showed 40 of ketones, trace of lysed blood, otherwise within normal limits. MICROBIOLOGY: Nasal swab was negative for Covid. RADIOLOGY: He had multiple imaging studies including initial CT of the had on admission which per radiology interpretation was without any acute findings. He had a repeat 5 hours from admission and his fall of CT of the head without contrast, no intracranial hemorrhage or skull fracture was noted. There was mild to moderate consistent brain changes with a status post right lymphoidectomy and inferior right mastoid effusion. CTA of his chest and per radiology interpretation showed no evidence of pulmonary arteries with large central pulmonary emboli. There were no acute thoracic findings. This was note of cholelithiasis without associated pericholecystic fluid or gallbladder wall thickening. There was note of moderate large colonic stool burden within the rectal vault raising concerns for impending fecal impaction. There was also note of sigmoid colon diverticulosis without diverticulitis and multiple hyperdensities in the bilateral kidneys, likely cysts, indeterminate ovoid lesions in the right renal midpole measuring 14 mm, recommended nonemergent MRI of the kidneys on followup. There was note of prostatomegaly. CT of his C-sine shows spondylosis that was found without acute findings. He had a forearm x-ray that showed no acute findings in the left forearm. Chest x-ray showed no acute cardiopulmonary process. ASSESSMENT: 1. Hyponatremia with a syncopal episode, uncertain if chronic or acute. 2. Altered mental status, likely secondary to hyponatremia with patient on Trileptal. 3. History of previous CVAs on Eliquis. 4. 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 Dale with patient on Trileptal. 5. Hypertension. 6. Lumbar spinal stenosis. 7. History of cholelithiasis, chronic, with elevated bilirubin on admission with no signs of acute cholecystitis. 8. Colonic constipation with concerns for impending fecal impaction. PLAN: The patient is going to be put in observation at least overnight for close monitoring given his unknown episode of loss of consciousness and some mild confusion initially. On initial exam, the patient was actually showing to be back at his baseline mental status and feels like it was probably due to his hyponatremia which is certainly a possibility. Given his hyponatremia, we are going to put him on fluid restriction and give him a little bit of normal saline and follow his labs closely. We did discuss his Trileptal which he has decreased the dosage on and has been wanting to get off of it because he feels like has been having a low sodium as a result of it but will continue with Trileptal until he can be seen as an outpatient. I did discuss his bilirubin with Dr. Torres. Dr. Torres feels like this is something to be followed as an outpatient but certainly will watch it closely and is possibly related to some mild hydration which could be resulting from his previous attempts at of bowel evacuation which we will work with, starting him on some Miralax twice daily today. Discussed plan of care at length with Dr. Garcia and he is in agreement with that plan of care. Will monitor his labs, I did talk to Dr. Serrano, his primary care physician, as well and again will hopefully be able to transition him to outpatient management tomorrow. Until then, we will continue to monitor and treat as needed.. #[id number] [facility]
[2020-08-09] MEDS ORDERED: ACETAMINOPHEN 325 MG TAB PO PRN (09:02)
[2020-08-09] MEDS ORDERED: SODIUM CHLORIDE 0.9% (FLUSH) 10 ML SYG IV PRN (09:02)
[2020-08-09] MEDS ORDERED: IV SET AND CAP CHANGE INJ INJ SCH (09:30)
[2020-08-09] MEDS ORDERED: PROPRANOLOL HCL 20 MG TAB ONE (09:35)
[2020-08-09] MEDS: amLODIPine BESYLATE 5 MG TAB PO SCH (10:13)
[2020-08-09] MEDS: FINASTERIDE 5 MG TAB PO SCH (10:13)
[2020-08-09] MEDS ORDERED: POLYETHYLENE GLYCOL 3350 17 GM PCKT ONE (13:48)
[2020-08-09] MEDS: POLYETHYLENE GLYCOL 3350 17 GM PCKT PO SCH (14:40)
[2020-08-09] MEDS: SODIUM CHLORIDE 0.9% 1000ML 1,000 ML IVS PRN (17:37)
[2020-08-09] MEDS ORDERED: LORazepam 1 MG TAB PO PRN (19:19)
[2020-08-09] MEDS ORDERED: APIXABAN 5 MG TAB PO ONE ×2 (19:27→21:00)
[2020-08-09] MEDS ORDERED: OXcarbazepine 300 MG TAB PO SCH (21:00)
[2020-08-09] MEDS ORDERED: NON-FORMULARY MEDICATION 1 EA MIS (Apixaban [Eliquis] 2.5 MG) PO SCH (21:00)
[2020-08-10] MEDS: SODIUM CHLORIDE 0.9% 1000ML 1,000 ML IVS PRN (04:49)
[2020-08-10] MEDS: amLODIPine BESYLATE 5 MG TAB PO SCH (08:53)
[2020-08-10] MEDS: FAMOTIDINE 20 MG TAB PO SCH (08:54)
[2020-08-10] MEDS: FINASTERIDE 5 MG TAB PO SCH (08:54)
[2020-08-10] MEDS: POLYETHYLENE GLYCOL 3350 17 GM PCKT PO SCH (08:55)
[2020-08-10] MEDS ORDERED: APIXABAN 5 MG TAB PO SCH (09:00)
[2020-08-10 11:00] VITALS: BP 128/72; TEMP 98.5; O2SAT 96
[2020-08-10] MEDS ORDERED: POLYETHYLENE GLYCOL 3350 17 GM PCKT PO ONE (21:00)
--- NOTE | 2020-08-11 10:29 | DS ---
SUPERVISING PHYSICIAN: Janes Milaln MD ADMISSION DIAGNOSES: 1. Hyponatremia with a syncopal episode, uncertain if chronic or acute. 2. Altered mental status, likely secondary to hyponatremia with patient on Trileptal. 3. History of previous CVAs on Eliquis. 4. 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 Dale with patient on Trileptal. 5. Hypertension. 6. Lumbar spinal stenosis. 7. History of cholelithiasis, chronic, with elevated bilirubin on admission with no signs of acute cholecystitis. 8. Colonic constipation with concerns for impending fecal impaction. DISCHARGE DIAGNOSES: 1. Hyponatremia with a syncopal episode, likely ongoing chronic issues with sodium showing improvement with treatment. 2. Altered mental status on admission secondary to #1 with patient back to baseline levels. 3. Fall resulting from #1 with patient on Eliquis but showing no evidence of a closed head injury. 4. History of petit mal seizures with history of multiple CVAs followed by Dr. Dale with patient on Trileptal. 5. Hypertension. 6. Lumbar spinal stenosis. 7. Cholelithiasis, chronic, with elevated bilirubin on admission with bilirubin levels returning to baseline, needs to be followed up as an outpatient. No signs of acute cholecystitis on current admission.. 8. Colonic constipation likely slow transient showing good response to stool softeners and laxatives and no signs of fecal impaction.. REASON FOR HOSPITALIZATION: Mr. Garcia is an 79 year-old male patient with a history of previous CVAs an petit mal seizures. He was brought to the Emergency Room las night after he apparently had an episode of a fall with loss of consciousness. Patient initially presented with confusion but was noted on initial laboratory studies showed his sodium was low at 123. He also takes Ativan at night as well as Trileptal. His initial CT of the head without contrast was without any acute findings. Given his hyponatremia and confusion, he was kept in the Emergency Room for an additional 5 hours and then followup on a head CT with the fact that the patient is on Eliquis due to his previous strokes to insure he does not have an active bleed. That repeat head scan was negative for acute bleed and at this point he is going to be admitted for continuation of treatment. His mentation is back to normal baseline prior to admission and he feels like probably his sodium was low and that is contributed probably to his Trileptal. 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 He notes over the last several days he has been having some issues with constipation and had to try some glycerin suppositories as well as a Fleets enema with minimal results. He wasn't having any abdominal pain the CT of the abdomen in the Emergency Room with contrast did show a large burden of colonic stool with a prominent stool burden in the rectal vault concerning for a possible impending fecal impaction. There is also note of sigmoid colonic diverticulosis but no diverticulitis. He also has a history of cholelithiasis and on initial labs his bilirubin was elevated at 3.[address] findings showed no associated pericholecystic fluid or gallbladder wall thickening concerning for acute cholelithiasis on initial exam. He was not having any right upper quadrant pain. I did discuss the case with Dr. Torres and he is in agreement that the patient is safe to admit here with priority being his sodium and his mental status change but to be closely monitored for the elevated bilirubin. He is admitted in stable condition. LABORATORY: Discharge white count was 8,900, hemoglobin 15.5, hematocrit 42.0, platelet count 215,000. Differential shows to be without a left shift. Coagulation studies showed PT 11, PTT28.0. Sodium on discharge was 128 with osmolality 257. Bilirubin was down to 1.7 compared to 3.4 on admission. Other liver functions were within normal limits. Vitamin B12 was 967, total PSA 0.88. Lipid panel showed triglyceride at 33 with cholesterol 179, HDL 108, LDL of 49. Urinalysis just showed 40 of ketones and trace lysed blood. MICROBIOLOGY: Covid swab was negative. RADIOLOGY: He had multiple CT studies including a cervical spine CT showed spondylosis of the cervical spine without acute findings. CT of the head initially on admission and a repeat 5 hours after admission to the Emergency Room showed no acute intracranial findings. CTA of the chest per radiology interpretation showed no large pulmonary emboli within the main pulmonary arteries. No acute thoracic findings. There was note of cholelithiasis without associated pericholecystic fluid or gallbladder wall thickening. He also had abdominal pelvic CT with contrast which showed, again, cholelithiasis without associated pericholecystic fluid or gallbladder wall thickening. He had an x- ray of the left forearm without any acute findings. Please see all these reports for details. EKG on admission showed normal sinus rhythm without any ST or T-wave changes to indicate acute ischemia. 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 He was initially kept in the Emergency Room due to the fact that he was on Eliquis but after repeat of CT at 4 hours with no evidence of bleed, at that point he was placed in observation. His sodium levels did improve with some low sodium and some mild fluid restriction. He had no associated symptoms compared to admission, no chest pain, no shortness of breath, no additional syncopal episodes, no dizziness. He had a brief physical therapy evaluation with no weaknesses noted. He does utilize his cane for walking. It was felt he had improved well enough on date of discharge to continue with outpatient management. His vital signs were showing to be stable. He was afebrile at 90.5, pulse 70, blood pressure 128/72, respirations 17, oxygen saturation 96% on room air at rest. 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 He is to call Dr. Serrano's office to have repeat labs for BNP to recheck his sodium levels. He had labs completed in the hospital with B12, PSA and lipid panels with a copy given to him at discharge. He was given instructions to increase his activity as tolerated and return to his usual diet. In regard to his medications, he is working to titrate himself off Trileptal. I told him to followup with Dr. Serrano as well as Dr. Dale and he feels, as well as I do, that probably his sodium level is a little bit related to the Trileptal but I have given instructions that he needs to communicate to his providers before he can completely discontinue his medications. No new medications prior to discharge. He was continued to amlodipine, Proscar, Eliquis, Inderal, Trileptal, Ativan. He was given Miralax daily. He did have some issues with constipation as noted in history of present illness and he did have good results with Miralax and felt that he could tolerate that as well, so he is going to try daily Miralax to prevent further constipation. Again, he is to return to the Emergency Department should he have any concerning symptoms and to call Dr. Serrano's office for followup care. DISPOSITION: The patient is discharged home in stable condition. CONDITION ON DISCHARGE: Stable and improving. [facility][id number] [facility]
== END 2020-08-10 12:45 | disposition home or self-care (01) ==
LOC: ER 21:36 → MS 23:00 → UNDOADMOB 08-09 06:00 → MS 08-09 08:00 → UNDODISOB 08-10 12:45
PROVIDERS: ADMIT Nurse Practitioner Family; ATTEND Nurse Practitioner Family
DX: E87.1 Hypo-osmolality and hyponatremia (principal); R41.82 Altered mental status, unspecified; R55 Syncope and collapse; E86.0 Dehydration; G40.A09 Absence epileptic syndrome, not intractable, without status epilepticus; I10 Essential (primary) hypertension; M48.061 Spinal stenosis, lumbar region without neurogenic claudication; K80.20 Calculus of gallbladder without cholecystitis without obstruction; K59.00 Constipation, unspecified; F32.9 Major depressive disorder, single episode, unspecified; M47.812 Spondylosis without myelopathy or radiculopathy, cervical region; K57.30 Diverticulosis of large intestine without perforation or abscess without bleeding; N40.0 Benign prostatic hyperplasia without lower urinary tract symptoms; Z20.828 Contact with and (suspected) exposure to other viral communicable diseases; Z23 Encounter for immunization; Z79.01 Long term (current) use of anticoagulants; Z79.899 Other long term (current) drug therapy; Z86.73 Personal history of transient ischemic attack (TIA), and cerebral infarction without residual deficits; Z88.1 Allergy status to other antibiotic agents; Z88.2 Allergy status to sulfonamides; Z88.8 Allergy status to other drugs, medicaments and biological substances; W19.XXXA Unspecified fall, initial encounter; Z12.5 Encounter for screening for malignant neoplasm of prostate
CPT/HCPCS: 90471; 96360; 96361 ×2; J7030 ×3; 90715; 82248; 82247; 80053 ×3; 80061; 36415 ×4; 81001; G0103; 85025 ×2; 83690; 85730; 85610; 82607; 84484 ×2; 83880; 83605; 71045; 73090; 70450 ×2; 72125; 71275; 74177; 94760; 97162; 99285; 93005; G0378; 87635

== ENCOUNTER → 2020-08-14 | Outpatient (CLI) | payer MEDICARE, BC | LOC: GMAM 14:04 | PROVIDERS: ATTEND Family Medicine | DX: E55.9 Vitamin D deficiency, unspecified (principal); E87.1 Hypo-osmolality and hyponatremia ==

== ENCOUNTER → 2020-08-28 | Outpatient (CLI) | payer MEDICARE, BC ==
--- NOTE | 2020-08-28 21:01 | MRI ---
EXAM DESCRIPTION: Brain w/o Contrast: MRI. CLINICAL HISTORY: concussion without loss of consciousness. Patient fell on August 08. COMPARISON: MRI scan of the brain without gadolinium IV contrast September 29. TECHNIQUE: Multiplanar, high-field MRI unit, multiple diffusion sequences, multiple conventional sequences without contrast. FINDINGS: Bilateral symmetric multifocal regions and confluent regions of hyperintense FLAIR and T2-weighted signal in the periventricular white matter and sub-cortical white matter involving most of the cerebrum with relative sparing of the temporal lobes.. No hemorrhage, no cerebral edema, no midline shift.. No diffusion restriction. Small focal site of encephalomalacia abutting the anterior left lateral ventricle in the posterior left frontal lobe consistent with prior infarct and stable. Normal signal in the bilateral basal ganglia. Hyperintense FLAIR and T2 signal in the central and right purnima but no diffusion restriction, no hemorrhage, no mass effect. Reminder of the brainstem and the cerebellar hemispheres. Showing No hemorrhage, no cerebral edema, no mass-effect. No diffusion restriction. Concordance of the diffusion and non-diffusion sequences with no diffusion restriction. Cortical sulci, ventricles, and other CSF spaces, and the subdural spaces are age appropriate. No effacement or displacement. No midline shift. No extra-axial hemorrhage. Normal flow signal void in the major vessels of the [place], and the venous sinuses. IACs are symmetric bilaterally. Diffuse fluid signal in the right mastoid air cell; normal signal in the left mastoid air cells. No mass effect in the bilateral cerebellopontine angles. Pituitary gland occupies less than half of the sella. Base of the cerebellar tonsils is at the level of the foramen magnum. Minimal mucoperiosteal thickening in the paranasal sinuses. The bony calvarium is intact. IMPRESSION: 1. Diffuse bilateral white matter changes in the subcortical white matter and periventricular white matter with no significant progression since the prior study. Consistent with cerebral microvascular disease and aging. No hemorrhage, no mass effect, midline shift and no diffusion restriction. No extra-axial fluid or hemorrhage. 2. Ischemic changes in the right lateral and inferior and midline purnima are stable. No hemorrhage. 3. Stable old infarction periventricular left frontal lobe. No hemorrhage or diffusion restriction. 4. No change in diffuse inflammatory process in the right mastoid air cells. Air-fluid level on the prior study is not longer seen. 5. Mild chronic paranasal sinusitis. Electronically signed by: Vinod Land MD 08/28/2020 8:59 PM [employer]
== END ==
LOC: MRI 09:51
PROVIDERS: ATTEND Psychiatry & Neurology Neurology
DX: S06.0X0S Concussion without loss of consciousness, sequela (principal); R90.82 White matter disease, unspecified; I67.82 Cerebral ischemia; J32.9 Chronic sinusitis, unspecified; Z86.73 Personal history of transient ischemic attack (TIA), and cerebral infarction without residual deficits

== ENCOUNTER → 2020-08-31 | Outpatient (CLI) | payer MEDICARE, BC ==
--- NOTE | 2020-09-02 07:51 | MRI ---
CLINICAL HISTORY PROVIDED: CYST OF KIDNEY TECHNIQUE: Multiplanar, multisequence MR images of the abdomen. Images were obtained before and after the use of IV contrast. COMPARISON: 08/08/2020 FINDINGS: Normal hepatic parenchymal signal and morphology. No suspicious hepatic lesion. No biliary dilatation. Cholelithiasis. The spleen, pancreas and adrenal glands are unremarkable. There are benign bilateral renal cysts. There is a interpolar right renal lesion measuring 1.4 cm which is T2 dark, T1 bright and loses signal on the in phase images. Evaluation limited by lack of intravenous contrast. No evidence of bowel obstruction. No adenopathy. No focal fluid collection. Normal caliber abdominal aorta. No focal marrow signal abnormality. IMPRESSION: Right renal lesion measuring 1.4 cm, which may reflect a hemorrhagic or proteinaceous cyst although evaluation is limited given the lack of intravenous contrast. Consider follow-up imaging for assessment of size stability. Electronically signed by: Burke Olmedo MD 09/02/2020 7:49 AM [employer]
== END ==
LOC: MRI 10:54
PROVIDERS: ATTEND Family Medicine
DX: N28.9 Disorder of kidney and ureter, unspecified (principal)